=== PATIENT | male | born 1945 | race Caucasian/White ===

== ENCOUNTER → 2017-02-14 | Day surgery (SDC) | payer OTHER, MEDICARE ==
[2017-01-26 08:14] VITALS: Ht 177.8 cm; Wt 107.3 kg
[~2017-02-14] VITALS: Ht 177.8 cm; Wt 107.3 kg
[~2017-02-14] MED LIST: ACETAMINOPHEN 325 MG TAB PO PRN; ASPI-232 PO; ATROPINE SULFATE 0.1 MG/ML 5ML SYR IV PRN; ATROPINE SULFATE 1% OP SOLN 2 ML BTL ONE; BRIMONIDINE TART 0.2% OP SOLN PER DROP CHARGE ONE; BSS 500ML IRRIG ONE; BSS FLUSH ONE; CRS/10 PO; CYAN10005 PO; ENDOCOAT 0.85ML SYRINGE INT OCU ONE; FENO160T PO; LACTATED RINGER'S 1000ML 500 ML IV ONE; LIDOCAINE 3.5% OPH GEL PER APPLICATION CHARGE OPL SCH; LIDOCAINE 4% OP SOLN DROP CHARGE ONE; LIDOCAINE 4% OP SOLN DROP CHARGE OPL SCH; LIDOCAINE HCL 1% MPF 2 ML VIAL ONE; LOSA1TAB38 PO; MIDAZOLAM HCL 1 MG/ML 2ML VIAL ONE; MOXIFLOXACIN OPH SOLN PER DROP CHARGE ONE; POVIDONE-IODINE OP SOLN 30 ML BTL ONE; PRED1SUS17 OP; PROPARACAINE 0.5% OP SOLN PER DROP CHARGE OPL SCH; TOBRAMYCIN/DEXAMETHASONE OPH OINT PER APPLN CHARGE ONE
[2017-02-14] MEDS: MOXIFLOXACIN OPH SOLN PER DROP CHARGE OPL SCH ×3 (09:42→10:02)
--- NOTE | 2017-02-14 09:59 | History & Physical Bridge - [place] ---
H&P Re-Evaluation Bridge Note: I have examined the patient, reviewed the History & Physical and in the interval since the performance of the History & Physical I have noted the following changes of clinical significance: No changes noted
--- NOTE | 2017-02-14 11:40 | Discharge Instructions-SurgCtr ---
Discharge Instructions Date of Service Feb 14, 2017. Visit Reason for Visit: Left Eye Endothelial Corneal Dystrophy Discharge Discharge Diagnosis / Problem: corneal edema left eye Discharge Goals Goal(s): Improve function Activity Recommendations Activity Limitations: per Instructions/Follow-up section Lifting Limitations: none Anesthesia . Post Anesthesia Instructions: If you have had General Anesthesia or IV Sedation: * Do not drive today. * Resume driving when surgeon permits. * Do not make important decisions or sign legal documents today. * Call surgeon for: 1. Temperature elevations greater than 101 degrees F. 2. Uncontrollable pain. 3. Excessive bleeding. 4. Persistent nausea and vomiting. 5. Medication intolerance (nausea, vomiting or rash). * For nausea and vomiting use only clear liquids such as: tea, soda, bouillon until nausea subsides, then gradually increase diet as tolerated. * If you have any concerns or questions, call your surgeon's office. If physician is unavailable and it is an emergency, call 911 or go to the nearest emergency room. . Instructions / Follow-Up Instructions / Follow-Up ACTIVITY RECOMMENDATIONS: * Bedrest (eyes to the arturo) MEDICATIONS: Resume previous medications unless instructed otherwise by your surgeon. Eye drops (today and tomorrow): Cipro - one drop in operative eye every 2 hours while awake Prednisolone 1% - one drop in operative eye every 2 hours while awake SPECIAL CARE INSTRUCTIONS: * If any problems or concerns, please call Dr. Diego's office at . * Keep plastic shield taped over eye to sleep at night. * Keep plastic shield taped over eye except to administer eye drops. * Keep plastic shield on until office visit the following day. FOLLOW UP VISIT: Follow-up with Dr. Diego in the [place] office as scheduled. If not already scheduled, please call the office at . Diet Recommendations Home Diet: resume previous diet Procedures Procedures Performed: Left Eye Descements Stripping Automated Endothelial Keratoplasty Pending Studies Studies pending at discharge: yes List of pending studies: corneal donor culture Medical Emergencies . Who to Call and When: Medical Emergencies: If at any time you feel your situation is an emergency, please call 911 immediately. . Non-Emergent Contact Non-Emergency issues call your: Proposal Manager Writer . . "Provider Documentation" section prepared by Jayro Diego. .
[2017-02-14 11:41] VITALS: TEMP 36.5
--- NOTE | 2017-02-14 11:41 | [facility] Post Operative Brief Note ---
Immediate Operative Summary Operative Date Feb 14, 2017. Pre-Operative Diagnosis Left Eye Corneal Edema Post-Operative Diagnosis Same Procedure(s) Performed Left Eye Descements Stripping Automated Endothelial Keratoplasty Surgeon Dr. Diego Canopy Stringer Surgeon(s) None Estimated Blood Loss 0 Findings corneal edema left eye Specimens A. Culture Donor Cornea Rim Complication(s) None Disposition Recovery Room / PACU
--- NOTE | 2017-02-14 12:47 | Anesthesia Progress Nt - [facility] ---
Anesthesia Post Op Note Date & Time Feb 14, 2017 at 12:46 Vital Signs Pain Intensity: 0 Vital Signs Past 12 Hours Date Time Temp Pulse Resp B/P Pulse Ox O2 Delivery O2 Flow Rate FiO2 02/14/17 12:14 64 14 114/62 97 02/14/17 11:41 36.5 65 16 120/75 98 Room Air 02/14/17 09:36 36.4 63 16 148/78 99 Room Air Notes Mental Status: alert / awake / arousable, participated in evaluation Pt Amnestic to Procedure: Yes Nausea / Vomiting: adequately controlled Pain: adequately controlled Airway Patency, RR, SpO2: stable & adequate BP & HR: stable & adequate Hydration State: stable & adequate Anesthetic Complications: no major complications apparent
--- NOTE | 2017-02-14 12:49 | OPERATIVE REPORT ---
DATE OF OPERATION: 02/14/2017 PREOPERATIVE DIAGNOSIS: Corneal edema, left eye. POSTOPERATIVE DIAGNOSIS: Same. PROCEDURE PERFORMED: Descemet stripping automated endothelial keratoplasty, left eye. COMPLICATIONS: None. ESTIMATED BLOOD LOSS: None. ANESTHESIA: Local with sedation. OPERATIVE REPORT: After informed consent was obtained in the holding area, attention was first turned to the donor cornea. It was placed on the corneal trephine endothelial side up and trephinated with an 8.0 mm Yue trephine by myself. It was then covered in Optisol and set aside. The patient was then brought back to the operating room where cardiac monitoring leads and oxygen by nasal cannula was administered by anesthesia. Gentle IV sedation was given and the patient's left eye was prepped and draped in usual sterile fashion. A wire lid speculum was placed in the left eye and the operating microscope swung into position. Using the previously used Yue trephine, it was inked and then used to memo the surface of the cornea for an 8.0 mm diameter. A Supersharp blade was then used to make a paracentesis port at the 5 o'clock position of the patient's left eye. 1% nonpreserved lidocaine was injected into the anterior chamber for anesthesia. A 2.2 mm keratome blade was then used to make a shelved clear cornea incision at the 3 o'clock position of the patient's left eye. The anterior chamber was then filled with Healon and a reversed Sinskey hook was used to score Descemet membrane from within the marked area. The Descemet stripper was then used to remove the Descemet membrane from within the marked area. Stromal aircraft quality control inspector was then used to roughen the stromal bed in the periphery of the stripped area. The main incision was then enlarged for a total of 4 mm and the irrigation-aspiration handpiece was used to remove the viscoelastic material from the eye. The graft was then placed on the surface of the host cornea endothelial side up and a drop of Healon was placed on it. The thin endothelial section was then from the rest of the stromal bed and placed on the EndoSerter. It was then retracted into the EndoSerter for implantation. The EndoSerter was then placed through the primary incision and the corneal graft was injected into the anterior chamber. It was unfolded underneath BSS and air and a single 10-0 nylon suture was placed through the main incision. Complete air fill of the eye was achieved and held for 15 minutes, after which time the interface was milked using a [place] [employer] roller. The eye was then covered with Healon and another 10 minutes elapsed. After the 10 minutes elapsed, the Healon was removed from the surface of the eye. A partial air-fluid exchange was done, leaving behind a 60% air fill and ReSure sealant was placed over both the primary incision as well as the paracentesis port. The wire lid speculum was then removed from the eye. Brimonidine, Vigamox, atropine and TobraDex ointment were placed on the eye and the eye was shielded. The patient was taken to recovery area to lie flat for an hour before being discharged home. I attest to the content of the Intraoperative Record and any orders documented therein. Any exceptio ns are noted below.
[2017-02-14 12:52] VITALS: BP 119/74; PULSE 64; O2SAT 98
== END | disposition home or self-care (01) ==
LOC: X.SURG 09:25
PROVIDERS: ATTEND Ophthalmology
DX: H18.20 Unspecified corneal edema (principal); I10 Essential (primary) hypertension; Z68.34 Body mass index [BMI] 34.0-34.9, adult; Z96.651 Presence of right artificial knee joint